=== PATIENT | male | born 2005 | race Caucasian/White ===

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

== ENCOUNTER 2023-04-26 22:17 | Emergency (ER) | payer OTHER, SELFPAY ==
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
[2023-04-26 22:32] VITALS: BP 124/56; PULSE 77; RESP 18; TEMP 36.7; O2SAT 98; BMI 37.8
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
[2023-04-27] MEDS: Ibuprofen 600 MG TABLET PO (02:30)
[2023-04-27] MEDS: oxyCODONE HCl Immed Release 5 MG TABLET PO (02:30)
== END 2023-04-27 04:21 | disposition home or self-care (01) ==
PROVIDERS: Emergency Provider Internal Medicine
DX: S93.402A Sprain of unspecified ligament of left ankle, initial encounter (principal); M79.10 Myalgia, unspecified site; R51.9 Headache, unspecified; M54.2 Cervicalgia; M25.572 Pain in left ankle and joints of left foot; R07.81 Pleurodynia; V29.99XA Rider (driver) (passenger) of other motorcycle injured in unspecified traffic accident, initial encounter; Y93.9 Activity, unspecified; Y92.9 Unspecified place or not applicable; Y99.9 Unspecified external cause status
CPT/HCPCS: 70450; 71046; 72125; 73610; 99284

== ENCOUNTER 2023-09-26 10:13 | Emergency (ER) | payer SELFPAY ==
[2023-09-26 10:19] VITALS: BP 130/81; PULSE 85; RESP 16; TEMP 36.1; O2SAT 98; BMI 36.0
== END 2023-09-26 18:39 | disposition left against medical advice (07) ==
LOC: HO.ED 18:28
PROVIDERS: Emergency Provider Emergency Medicine
DX: R10.13 Epigastric pain (principal); Z79.899 Other long term (current) drug therapy; Z11.52 Encounter for screening for COVID-19; Z20.822 Contact with and (suspected) exposure to COVID-19
CPT/HCPCS: 36415; 80048; 85025; 87502; 87635; 99281; 99283